=== PATIENT | female | born 1950 | race Caucasian/White ===

== ENCOUNTER → 2018-02-17 10:51 | Outpatient (CLI) | payer MEDICARE, BC, SELFPAY ==
[2018-02-17 12:45] LABS: Abs Immature Grans 0.02 k/cumm (0.0-0.09); Absolute Eosinophil Count 0.08 k/cumm (0.0-0.7); Absolute Lymphocyte Count 1.15 k/cumm (1.2-3.4); Absolute Monocyte Count 0.66 k/cumm (0.11-0.7); Absolute Neutrophil Count 7.58 k/cumm (1.2-6.7); Eosinophils % 0.8; HCT 41.1 % (36.0-46.0); HGB 13.5 g/dL (12.0-15.5); Immature Grans % 0.2; Lymphocytes % 12.1; Mean Corp. HGB Concentration 32.8 g/dL (32.0-36.0); Mean Corpuscular Hemoglobin 32.1 pg (27.0-33.0); Mean Corpuscular Volume 97.9 fL (80-95); Mean Platelet Volume 12.6 fL (8.0-11.0); Neutrophils % 79.9; Platelet Count 183 x1000/uL (130-400); RBC Distribution Width 12.7 % (11.7-14.6); White Blood Cell Count 9.49 k/cumm (4.4-10.8)
[2018-02-17 13:00] LABS: ALT 35 U/L (12-78); AST 21 U/L (15-37); Alkaline Phosphatase 76 U/L (46-116); Anion Gap 10.3 mmol/L (3-11); BUN 14 mg/dL (7-18); Bilirubin, Total 0.6 mg/dL (0.2-1.0); CO2 28.7 mmol/L (21.0-32.0); CREATININE 0.78 mg/dL (0.55-1.02); Calcium 8.9 mg/dL (8.5-10.1); Chloride 103 mmol/L (98-107); Glucose 96 mg/dL (70-100); Potassium 3.9 mmol/L (3.5-5.1); Sodium 142 mmol/L (136-145)
[2018-02-17 13:32] LABS: ESR 21 MM/HR (0-30)
== END ==
PROVIDERS: PCP Family Medicine; Visit Provider Internal Medicine
DX: D64.9 Anemia, unspecified (principal); M81.0 Age-related osteoporosis without current pathological fracture; R10.32 Left lower quadrant pain
CPT/HCPCS: 36415; 80053; 85652; 85025

== ENCOUNTER → 2018-02-23 00:14 | Outpatient (CLI) | payer MEDICARE, BC, SELFPAY ==
--- NOTE | 2018-02-23 07:07 | DI.RPTCT_ITS ---
SYMPTOM/DIAGNOSIS: LLQ BD PAIN, R10.32 CT SCAN ABDOMEN AND PELVIS: CT scan of the abdomen and pelvis was performed following the uneventful administration of intravenous and oral contrast material. Comparison is . The visualized lung bases are clear. There are a few tiny hypodensities scattered within the liver. They are too small for further characterization but likely reflect small cysts. The appear stable compared to the prior examination. No suspicious hepatic masses are seen. There is focal fatty infiltration seen about the ligamentum teres. The gallbladder is unremarkable. No biliary ductal dilatation is present. The pancreas appears grossly unremarkable as are the spleen and adrenal glands. The kidneys show normal and symmetric enhancement. No evidence of a solid renal mass or obstruction. The urinary bladder is intact. The reproductive organs are unremarkable. There is again seen a ring enhancing cystic lesion in the right adnexa with an adjacent calcification. It is unchanged compared to 2012. The abdominal aorta is of normal caliber. No aneurysmal dilatation seen. No significant abdominal or pelvic adenopathy, ascites or pneumoperitoneum present. The bowel shows no evidence of obstruction or inflammation. No findings to suggest an acute appendicitis are present. Mild degenerative changes are seen in the spine. IMPRESSION: 1. No evidence of an acute abdomen 2. Stable right adnexal lesion. This may represent a benign lesion such as a dermoid or degenerative uterine fibroid. This is unchanged dating back to CT scan of the abdomen and pelvis from 11/10/11.
[2018-02-23] MEDS: Omnipaque 350 MG/ML 50 ML BTL IJ (08:34)
[2018-02-23] MEDS: Omnipaque 350 MG/ML 100 ML BTL IJ (08:35)
== END ==
PROVIDERS: PCP Family Medicine; Visit Provider Internal Medicine
DX: R10.32 Left lower quadrant pain (principal); R19.09 Other intra-abdominal and pelvic swelling, mass and lump; D25.9 Leiomyoma of uterus, unspecified
CPT/HCPCS: 74177; Q9967; J3490

== ENCOUNTER 2018-07-26 15:04 | Outpatient (CLI) | payer MEDICARE, BC, SELFPAY ==
[2018-07-26 15:31] LABS: HCT 43.5 % (36.0-46.0); HGB 14.4 g/dL (12.0-15.5); Mean Corp. HGB Concentration 33.1 g/dL (32.0-36.0); Mean Corpuscular Hemoglobin 32.1 pg (27.0-33.0); Mean Corpuscular Volume 97.1 fL (80-95); Mean Platelet Volume 11.9 fL (8.0-11.0); Platelet Count 187 x1000/uL (130-400); RBC 4.48 m/cumm (4.00-5.20); RBC Distribution Width 12.5 % (11.7-14.6); White Blood Cell Count 6.53 k/cumm (4.4-10.8)
[2018-07-26 16:29] LABS: Vitamin D 25 Total 79.9 ng/ml (30-100)
[2018-07-26 16:32] LABS: ALT 38 U/L (12-78); AST 25 U/L (15-37); Albumin 4.4 g/dL (3.4-5.0); Alkaline Phosphatase 71 U/L (46-116); Anion Gap 9.7 mmol/L (3-11); BUN 20 mg/dL (7-18); Bilirubin, Total 0.4 mg/dL (0.2-1.0); CO2 29.3 mmol/L (21.0-32.0); CREATININE 0.85 mg/dL (0.55-1.02); Calcium 9.6 mg/dL (8.5-10.1); Chloride 101 mmol/L (98-107); Glucose 96 mg/dL (70-100); Potassium 3.8 mmol/L (3.5-5.1); Sodium 140 mmol/L (136-145); TSH (W/Ref FT4) 3.02 uIU/mL (0.358-3.74); Total Protein 7.7 g/dL (6.4-8.2); Vitamin B12 1528 pg/mL (193-986)
== END 2018-07-26 15:24 ==
PROVIDERS: PCP Family Medicine; Visit Provider Family Medicine
DX: R25.1 Tremor, unspecified (principal); G47.00 Insomnia, unspecified; M81.0 Age-related osteoporosis without current pathological fracture
CPT/HCPCS: 36415; 80053; 82306; 85027; 82607; 84443

== ENCOUNTER 2018-10-25 00:59 | Outpatient (CLI) | payer MEDICARE, BC, SELFPAY ==
--- NOTE | 2018-10-25 13:40 | DI.RAD_ITS ---
SYMPTOMS/DIAGNOSIS: RIGHT LOW BACK PAIN, RIGHT SACROILIAC JOINT PAIN S/P FALL 1 YEAR AGO, M54.5, M53.3, G89.29; RIGHT KNEE PAIN, M25.569 LUMBAR SPINE: AP, lateral and bilateral oblique views. There are five lumbar-type vertebral bodies. There is normal alignment. No spondylolysis or spondylolisthesis is seen. There is moderate narrowing of the L4-5 disc space. The vertebral bodies, disc spaces and posterior elements are otherwise well maintained. Mild degenerative changes of the facet joints are seen at L4-5 and L5-S1. No acute fracture or subluxation is seen in the lumbar spine. IMPRESSION: Mild degenerative changes in the lumbar spine. SACROILIAC JOINTS: Three views were obtained. Mild degenerative changes are seen at the sacroiliac joints. No erosions or ankylosis is seen. The bones appear intact. RIGHT KNEE: Four views. The joint spaces are well maintained. The bones are intact and normally mineralized. There is a small enthesophyte at the superior aspect of the patella. No radiopaque foreign bodies are seen in the soft tissues. IMPRESSION: No acute abnormality.
== END 2018-10-25 01:19 ==
PROVIDERS: PCP Family Medicine; Visit Provider Family Medicine
DX: M54.5 Low back pain (principal); M53.3 Sacrococcygeal disorders, not elsewhere classified; M25.561 Pain in right knee; M51.36 Other intervertebral disc degeneration, lumbar region; M47.817 Spondylosis without myelopathy or radiculopathy, lumbosacral region; G89.29 Other chronic pain
CPT/HCPCS: 73562; 72110; 72202

== ENCOUNTER 2019-05-30 01:15 | Outpatient (CLI) | payer MEDICARE, BC, SELFPAY ==
--- NOTE | 2019-05-30 10:30 | DI.MAMMO_ITS ---
EXAM: MG MAMMO SCREENING CLINICAL HISTORY: screening, Z12.31 TECHNIQUE: Bilateral full field digital CC and MLO mammographic images were obtained with 3D tomosyn thesis and utilizing computer aided detection (CAD). COMPARISON: Available for comparison. FINDINGS: Masses/Architectural Distortion: None seen. Microcalcifications: No suspicious pleomorphic-type are seen. Skin Thickening/Nipple Retraction: None. IMPRESSION: 1. No significant interval change with no specific features of malignancy noted. 2. Unless there is more urgent need, screening mammography is recommended, as per [place] [employer] guidelines. ACR BI-RAD Category- 1 Negative Breast Density - Category C - Heterogeneously dense The mammogram demonstrates the patient's breast tissue is dense. Dense breast tissue is very common a nd is not abnormal but dense breast tissue can make it harder to find cancer on a mammogram. Also, de nse breast tissue may increase their breast cancer risk. This information about the result of the [facility] mogram report was provided to the patient to raise their awareness. Use this report when you speak wi th the patient about their risks for breast cancer, which includes their family history. At that time , you may recommend for more screening tests (Ultrasound or MRI) as they might be useful based on the ir risk. A negative radiographic report should not delay biopsy if a dominant or clinically suspicious mass is present. Up to ten percent of cancers are not identified on mammography. A negative report may reinforce clinical impression. Adenosis and dense breasts may obscure an underlying neoplasm. False positive reports average 6 to 10%. Patient will receive a letter notifying them of these results.
== END 2019-05-30 01:35 ==
PROVIDERS: PCP Family Medicine; Visit Provider Family Medicine
DX: Z12.31 Encounter for screening mammogram for malignant neoplasm of breast (principal)
CPT/HCPCS: 77063; 77067

== ENCOUNTER 2020-09-06 14:33 | Outpatient (REF) | payer MEDICARE, BC, SELFPAY ==
[2020-09-06 14:34] LABS: Bilirubin Negative (Negative); Blood Negative (Negative); Clarity Clear (Clear); Glucose Negative (Negative); Ketones Negative (Negative); Leukocyte Esterase Negative (Negative); Nitrite Negative (Negative); Specific Gravity 1.015 (1.005-1.025); Urobilinogen 0.2 EU/dL (Up TO 0.2)
== END 2020-09-06 14:34 | disposition home or self-care (01) ==
LOC: LBN 14:33
PROVIDERS: PCP Family Medicine; Visit Provider Family Medicine
DX: R39.15 Urgency of urination (principal); R39.89 Other symptoms and signs involving the genitourinary system
CPT/HCPCS: 81003

== ENCOUNTER 2020-09-21 03:58 | Outpatient (CLI) | payer MEDICARE, BC, SELFPAY ==
--- NOTE | 2020-09-21 07:45 | DI.US_ITS ---
EXAM: US PELVIS TRANSVAGINAL CLINICAL HISTORY: suprapubic fullness,PELVIC PAIN, R10.2. TECHNIQUE: Transabdominal and transvaginal pelvic ultrasound was performed using standard protocol. COMPARISON: CT ABD PELVIS WITH CONTRAST from 11/10/2011 CT ABD PELVIS WITH CONTRAST from 02/23/2018 FINDINGS: KIDNEYS: Kidneys are symmetric in size. No evidence of hydronephrosis. No renal mass or cyst identif ied. UTERUS: Position: Anteverted. Size: 3.5 long by 1.8 AP by 3.2 transverse cm Endometrium: Less than 0.3 cm. Normal for patient's menstrual status. There is a small amount of flui d within the endometrial canal. Myometrium: Unremarkable. Cervix: Unremarkable. Other: There is a stable 1.8 x 1.7 x 1.2 cm solid mass to the right interposed between the right ovar y and the uterus. This corresponds to the mass seen on CT scans dating to the earliest examination o n 11/10/2011. The adjacent calcification has also been present on prior CT examinations. This may re present a fibroid. OVARIES: Right: 1.6 x 1.1 x 1.1 cm Cyst or mass: No suspicious masses. Left: 1.0 x 0.8 x 0.9 cm Cyst or mass: No suspicious masses. DOPPLER: Color: Symmetric and uniform flow to both ovaries. No hyperemia. Duplex: Normal ovarian arterial waveforms visualized. CUL-DE-SAC: Free fluid: None. Other: None. IMPRESSION: 1. No evidence of hydronephrosis. 2. Small amount of fluid within the endometrial canal. Otherwise unremarkable endometrial stripe. 3. Stable mass and calcifications associated with the uterus likely reflecting fibroids. 4. Unremarkable bilateral ovaries. DATA REPOSITORY:
== END 2020-09-21 04:18 ==
PROVIDERS: PCP Family Medicine; Visit Provider Family Medicine
DX: R10.2 Pelvic and perineal pain (principal); D25.9 Leiomyoma of uterus, unspecified
CPT/HCPCS: 76830; 76856

== ENCOUNTER 2020-10-23 01:11 | Outpatient (CLI) | payer MEDICARE, BC, SELFPAY ==
--- NOTE | 2020-10-23 12:20 | DI.MAMMO_ITS ---
EXAM: MAMMO SCREENING CLINICAL HISTORY: screening,Z12.39 TECHNIQUE: Mammograms were interpreted according to the usual protocol including computer analysis w [facility] CAD system, tomosynthesis and C-view imaging. COMPARISON: FINDINGS: The breasts are heterogeneously dense. There are multiple focal areas of asymmetric density seen francy aterally. No dominant mass or clumped microcalcification is seen. Current examination is compared w [facility] previous examinations including May 2019 and there has been no gross interval change in appe arance in comparison with the prior studies. IMPRESSION: No specific evidence of malignancy at this time. Routine screening examinations are suggested at yea rly intervals due to the family history of breast carcinoma. BI-RADS Category 1 - Negative Breast Density - Category C - Heterogeneously dense
== END 2020-10-23 01:31 ==
PROVIDERS: PCP Family Medicine; Visit Provider Family Medicine
DX: Z12.31 Encounter for screening mammogram for malignant neoplasm of breast (principal); Z80.3 Family history of malignant neoplasm of breast
CPT/HCPCS: 77063; 77067

== ENCOUNTER 2022-09-19 00:49 | Outpatient (CLI) | payer MEDICARE, SELFPAY ==
--- NOTE | 2022-09-19 14:10 | DI.RAD_ITS ---
Exam(s) XR CERVICAL SPINE COMP 4-5V EXAM: XR CERVICAL SPINE COMP 4-5V CLINICAL HISTORY: neck pain,degeneration cervical invertebral disc,m50.30. TECHNIQUE: 2D digital imaging was performed. COMPARISON: No exams were available for comparison FINDINGS: Five views: No evidence of acute fracture. There is reversal normal curvature. Disc space narrowing at C5-6 not ed. Mild anterolisthesis C4 upon C5 noted. There is multilevel facet arthropathy. Multilevel [place] joint osteophytes bilaterally. No cervical ribs. No osseous lesions. IMPRESSION: Chronic degenerative disc disease and chronic facet arthropathy. Reversal of the normal curvature of the cervical spine evident. This probably related to chronic muscle spasm. DATA REPOSITORY: RADIATION DOSE DELIVERED:
== END 2022-09-19 01:09 ==
LOC: DI 00:49
PROVIDERS: PCP Family Medicine; Visit Provider Family Medicine
DX: M50.322 Other cervical disc degeneration at C5-C6 level (principal); M47.892 Other spondylosis, cervical region; M62.838 Other muscle spasm
CPT/HCPCS: 72050

== ENCOUNTER 2022-10-14 14:41 | Outpatient (REF) | payer MEDICARE, SELFPAY ==
--- NOTE | 2022-10-14 14:00 | SKI_PTH ---
PATIENT: Genevieve Roldan LOC: [facility] U#:[id number] AGE/SX: 71/F ROOM: RE10/14/[address]: Lyly Mosqueda MD, DC : 1950 BED: DIS: 10/14/2022 SPEC #: [id number] RECD: 10/15/22 12:30 STATUS: MARTINA REQ #: [id number] ESTEBAN: 10/14/22 14:[address]: Lyly Mosqueda DEPT: Surgical Specimen RECD BY: Jovana Schulte Tissues: 1 - SKIN BIOPSY(SHAVE/PUNCH) Procedures: SKIN LEVEL 4 Comments: [id number]
== END 2022-10-14 14:42 | disposition home or self-care (01) ==
LOC: LBN 14:41
PROVIDERS: PCP Family Medicine; Visit Provider Family Medicine
DX: L82.0 Inflamed seborrheic keratosis (principal)
CPT/HCPCS: 88305

== ENCOUNTER 2022-10-22 01:14 | Outpatient (CLI) | payer MEDICARE, SELFPAY ==
--- NOTE | 2022-10-22 07:45 | DI.MAMMO_ITS ---
Exam(s) MAMMO SCREENING EXAM: MAMMO SCREENING CLINICAL HISTORY: screening,z12.39 TECHNIQUE: Mammograms were interpreted according to the usual protocol including computer analysis w [employer] CAD system, tomosynthesis and C-view imaging. COMPARISON: 2013 through 2020 FINDINGS: The breasts are composed of heterogeneously dense fibroglandular densities, Breast Density category C . No suspicious masses or suspicious microcalcifications are seen. No skin thickening or abnormal axillary lymph nodes are seen. There has been no significant change from prior exams. IMPRESSION: BI-RADS Category 1, Negative mammogram. Yearly screening mammography is recommended. Breast Density Category C, heterogeneously Dense. The mammogram demonstrates the patient's breast tissue is dense. Dense breast tissue is very common a nd is not abnormal but dense breast tissue can make it harder to find cancer on a mammogram. Also, de nse breast tissue may increase breast cancer risk. This information about the result of the mammogram report was provided to the patient to raise their awareness. Use this report when you speak with the patient about their risks for breast cancer, which includes their family history. At that time, you may recommend additional screening tests (Ultrasound or MRI) as they might be useful based on their r isk. A negative radiographic report should not delay biopsy if a dominant or clinically suspicious mass is present. Up to ten percent of cancers are not identified on mammography. A negative report may reinforce clinical impression. Adenosis and dense breasts may obscure an underlying neoplasm. False positive reports average 6 to 10%.
== END 2022-10-22 01:34 ==
LOC: DI 01:14
PROVIDERS: PCP Family Medicine; Visit Provider Family Medicine
DX: Z12.31 Encounter for screening mammogram for malignant neoplasm of breast (principal)
CPT/HCPCS: 77063; 77067

== ENCOUNTER 2022-10-22 03:11 | Outpatient (CLI) | payer MEDICARE, SELFPAY ==
[2022-10-22 14:17] LABS: ALT 37 U/L (14-59); AST 23 U/L (15-37); Alkaline Phosphatase 72 U/L (46-116); Anion Gap 6.7 mmol/L (3-11); BUN 16 mg/dL (7-18); Bilirubin, Total 0.3 mg/dL (0.2-1.0); CO2 33.3 mmol/L (21.0-32.0); CREATININE 0.8 mg/dL (0.55-1.02); Calcium 9.5 mg/dL (8.5-10.1); Chloride 105 mmol/L (98-107); Estimated GFR 77.75 (mL/min/1.73m2); Ferritin 60 ng/mL (8-252); Glucose 119 mg/dL (74-106); Potassium 4.1 mmol/L (3.5-5.1); Sodium 145 mmol/L (136-145); TSH (W/Ref FT4) 2.31 uIU/mL (0.36-3.74); Total Protein 7.6 g/dL (6.4-8.2)
[2022-10-22 14:21] LABS: Hemoglobin A1C 5.9 % (<5.7)
[2022-10-22 14:34] LABS: Iron 133 ug/dL (50-170)
[2022-10-22 15:01] LABS: Vitamin B12 1215 pg/mL (193-986)
== END 2022-10-22 03:12 | disposition home or self-care (01) ==
LOC: LBO 03:11
PROVIDERS: PCP Family Medicine; Visit Provider Family Medicine
DX: E11.9 Type 2 diabetes mellitus without complications (principal); R53.83 Other fatigue; L40.9 Psoriasis, unspecified
CPT/HCPCS: 36415; 80053; 82306; 82607; 82728; 83036; 83540; 84443

== ENCOUNTER 2022-12-19 17:19 | Outpatient (REF) | payer MEDICARE, SELFPAY ==
[2022-12-19 16:28] LABS: Bilirubin Negative (Negative); Blood Trace-intact (Negative); Clarity Clear (Clear); Glucose Negative (Negative); Ketones Negative (Negative); Leukocyte Esterase Small (Negative); Nitrite Negative (Negative); Urobilinogen 0.2 mg/dL (Up to 0.2)
[2022-12-19 16:38] LABS: Bacteria Few HPF (Negative); C & S Indicated? Yes; Casts Negative LPF (Negative); Crystals Negative HPF (Negative); Epithelial Cells Few HPF (Negative); Mucus Negative (Negative); RBC 0-2 HPF (0-2)
== END 2022-12-19 17:20 | disposition home or self-care (01) ==
LOC: LBN 17:19
PROVIDERS: PCP Family Medicine; Visit Provider Nurse Practitioner Family
DX: R30.0 Dysuria (principal)
CPT/HCPCS: 81003; 81015; 87086

== ENCOUNTER 2023-01-05 13:23 | Outpatient (REF) | payer MEDICARE, SELFPAY ==
[2023-01-05 14:27] LABS: Bilirubin Negative (Negative); Blood Negative (Negative); Clarity Clear (Clear); Glucose Negative (Negative); Ketones Negative (Negative); Leukocyte Esterase Negative (Negative); Nitrite Negative (Negative); Urobilinogen 0.2 mg/dL (Up to 0.2); pH 6.5 (5-8)
== END 2023-01-05 13:24 | disposition home or self-care (01) ==
LOC: LBN 13:23
PROVIDERS: PCP Family Medicine; Visit Provider Family Medicine
DX: R10.2 Pelvic and perineal pain (principal)
CPT/HCPCS: 81003

== ENCOUNTER 2023-06-05 22:20 | Outpatient (REF) | payer MEDICARE, SELFPAY | END 2023-06-05 22:21 | disposition home or self-care (01) | LOC: LBN 22:20 | PROVIDERS: PCP Family Medicine; Visit Provider Family Medicine | DX: R30.0 Dysuria (principal) | CPT/HCPCS: 87077; 87086; 87186 ==

== ENCOUNTER 2023-06-12 01:30 | Outpatient (CLI) | payer MEDICARE, SELFPAY ==
[2023-06-15 12:30] LABS: TB Interpretation Negative (Negative); TB1 Ag minus Nil 0.09 IU/ml; TB2 Ag minus Nil 0.04 IU/mL
== END 2023-06-12 01:31 | disposition home or self-care (01) ==
PROVIDERS: PCP Family Medicine; Visit Provider Dermatology
DX: Z79.899 Other long term (current) drug therapy (principal)
CPT/HCPCS: 36415; 86480

== ENCOUNTER → 2023-12-23 02:02 | Outpatient (CLI) | payer MEDICARE, SELFPAY ==
--- NOTE | 2023-12-23 07:15 | DI.MAMMO_ITS ---
Exam(s) MAMMO SCREENING EXAM: MAMMO SCREENING CLINICAL HISTORY: screening, Z12.39 TECHNIQUE: Bilateral full field digital CC and MLO mammographic images were obtained with 3D tomosyn thesis and utilizing computer aided detection (CAD). COMPARISON: Available for comparison. FINDINGS: Masses/Architectural Distortion: There are stable scattered nodular densities. No new nodules are se en. No areas of architectural distortion are present. Microcalcifications: No suspicious pleomorphic-type are seen. Skin Thickening/Nipple Retraction: None. IMPRESSION: 1. No significant interval change with no specific features of malignancy noted. 2. Unless there is more urgent need, screening mammography is recommended, as per [place] [employer] guidelines. BI-RADS Category 1 - Negative Breast Density - Category C - Heterogeneously dense Breast density category C or D implies that the patient has dense breast tissue. Dense breast tissue is very common and is not abnormal but dense breast tissue can make it harder to find cancer on a ma mmogram. Also, dense breast tissue may increase their breast cancer risk. This information about the result of the mammogram report was provided to the patient to raise their awareness. Use this report when you speak with the patient about their risks for breast cancer, which includes their family hist ory. At that time, you may recommend for more screening tests (Ultrasound or MRI) as they might be us eful based on their risk. A negative radiographic report should not delay biopsy if a dominant or clinically suspicious mass is present. Up to ten percent of cancers are not identified on mammography. A negative report may reinforce clinical impression. Adenosis and dense breasts may obscure an underlying neoplasm. False positive reports average 6 to 10%. Patient will receive a letter notifying them of these results.
== END ==
PROVIDERS: PCP Family Medicine; Visit Provider Family Medicine
DX: Z12.31 Encounter for screening mammogram for malignant neoplasm of breast (principal); R92.333 Mammographic heterogeneous density, bilateral breasts
CPT/HCPCS: 77063; 77067

== ENCOUNTER 2024-12-01 15:19 | Outpatient (REF) | payer MEDICARE, SELFPAY ==
[2024-12-01 21:14] LABS: Bilirubin Negative (Negative); Blood Negative (Negative); Clarity Clear (Clear); Glucose Negative (Negative); Ketones Negative (Negative); Leukocyte Esterase Negative (Negative); Nitrite Negative (Negative); Specific Gravity 1.015 (1.005-1.025); Urobilinogen 0.2 mg/dL (Up to 0.2)
== END 2024-12-01 15:20 | disposition home or self-care (01) ==
LOC: LBN 15:19
PROVIDERS: PCP Family Medicine; Visit Provider Family Medicine
DX: R30.0 Dysuria (principal); B96.29 Other Escherichia coli [E. coli] as the cause of diseases classified elsewhere
CPT/HCPCS: 81003

== ENCOUNTER 2024-12-20 15:52 | Outpatient (REF) | payer MEDICARE, SELFPAY ==
--- NOTE | 2024-12-20 14:15 | SKI_PTH ---
PATIENT: Genevieve Roldan LOC: N U#:[id number] AGE/SX: 74/F ROOM: RE12/20/[address]: Lyly Mosqueda MD, DC : 1950 BED: DIS: 12/20/2024 SPEC #: [id number] RECD: 12/21/24 13:01 STATUS: MARTINA REKatie #: [id number] ESTEBAN: 12/20/24 14:[address]: Lyly Mosqueda DEPT: Surgical Specimen RECD BY: Jovana Schulte Tissues: 1 - SKIN BIOPSY(SHAVE/PUNCH) Procedures: SKIN LEVEL 4 Comments: [id number]
== END 2024-12-20 15:53 | disposition home or self-care (01) ==
LOC: LBN 15:52
PROVIDERS: PCP Family Medicine; Visit Provider Family Medicine
DX: L57.0 Actinic keratosis (principal); L98.499 Non-pressure chronic ulcer of skin of other sites with unspecified severity
CPT/HCPCS: 88305